=== PATIENT | male | born 1945 | race Caucasian/White ===

== ENCOUNTER 2021-10-09 09:24 | Outpatient (CLI) | payer OTHER | END 2021-10-09 09:25 | disposition home or self-care (01) | LOC: MADRAD 09:24 | PROVIDERS: ATTEND Family Medicine | DX: M53.3 Sacrococcygeal disorders, not elsewhere classified (principal); M47.898 Other spondylosis, sacral and sacrococcygeal region | CPT/HCPCS: 72202 ==

== ENCOUNTER 2022-08-11 19:51 | Emergency (ER) | payer OTHER | END 2022-08-11 20:06 | disposition left against medical advice (07) | LOC: MADERS 19:51 | DX: Z53.21 Procedure and treatment not carried out due to patient leaving prior to being seen by health care provider (principal) ==